=== PATIENT | female | born 1965 | race Caucasian/White ===

== ENCOUNTER 2017-07-07 01:04 | Emergency (ER) | payer MEDICARE, MEDICAID ==
[2017-07-07] MEDS: NITROGLYCERIN 0.4 MG/TAB BTL SL PRN ×2 (01:24→01:30)
[2017-07-07] MEDS ORDERED: ASPIRIN 81 MG TAB.CHEW PO ONE (01:31)
--- NOTE | 2017-07-07 01:32 | ERNOTE ---
Chest Pain/Cardiac HPI Time Seen by Provider: 07/07/17 01:20 Source: patient Exam Limitations: no limitations Allergies/Adverse Reactions: Allergies Penicillins Allergy (Mild, Verified 07/07/17 01:19) Hives Home Medications: HOME MEDICATIONS hydrOXYzine PAMOATE [Hydroxyzine Pamoate] 25 mg PO TID PRN #10 capsule 07/07/17 [Last Taken Unknown] Narrative: pt was at rest this morning and had sudden onset of chest pain that radiated to her left arm. Timing: getting worse Severity/Quality: mild Location: substernal Chest Pain Radiation: jaw Activities at Onset: rest Review of Systems - Review of Systems Constitutional: Absent: recent illness, fever, chills EYE: Present: no symptoms reported ENT: Present: no symptoms reported Respiratory: Absent: shortness of breath, cough Cardiology: Present: See HPI Gastrointestinal/Abdominal: Absent: nausea, vomiting Genitourinary: Absent: pain, dysuria Musculoskeletal: Absent: back pain, muscle pain Skin: Absent: rash Neurological: Present: anxiety, emotional problems Endocrine: Present: excessive sweating, flushing Hematologic/Lymphatic: Present: no symptoms reported Psych: Present: no symptoms reported - Patient's Past Medical History Patient History - Medical: No pertinent hx Patient History - Cardiac/Respiratory: No pertinent hx - Family History Mother Family History - Medical: No pertinent hx Family History - Cardiac/Respiratory: COPD Family History - Cancer: No pertinent family hx Father Family History - Medical: Family History - Cardiac/Respiratory: Hypertension Family History - Cancer: Bone, Prostate Physical Exam - Physical Exam General Appearance: Present: wd/wn, alert, mild distress, anxious Head Exam: Present: normal inspection, no evidence of injury Ears, Nose, Throat: Present: normal ENT inspection Respiratory: Present: no accessory muscle use, lungs clear, decreased breath sounds Cardiovascular/Chest: Present: regular rate, rhythm, no murmur Gastrointestinal/Abdominal: Present: normal bowel sounds, nontender, nondistended Back Exam: Present: normal inspection, normal range of motion, no vertebral tenderness Extremity Exam: Present: normal inspection, normal range of motion, no edema Neurological Exam: Present: alert, oriented, no motor/sensory deficits Skin Exam: Present: normal color, warm/dry Lymphatic Exam: Present: no adenopathy ED Progress - Results and Orders Patient's Lab Results:: I have reviewed the patient's lab results. Results and Orders: Laboratory Tests 07/07/17 07/07/17 01:41 01:41 WBC 8.4 Hgb 14.8 Hct 44.2 Plt Count 337 Sodium 139 Potassium 3.4 Chloride 99 Carbon Dioxide 31.9 Anion Gap 11.5 BUN 13 Creatinine 0.90 Random Glucose 125 H Calcium 9.7 Total Bilirubin 0.4 AST 35 ALT 68 H Alkaline Phosphatase 130 Troponin I Less than 0.017 Total Protein 8.6 H Albumin 4.5 - Vital Signs Patient's Vital Signs:: I have reviewed the patient's vital signs. - EKG EKG: NSR, nonspecific ST T wave changes EKG read: Interp. by me - X-Ray X-Ray #1 X-Ray: chest Interpretation: Interp. by me X-ray Comments: no infiltrate or effusion, heart appears normal - Progress/Reassessment Progress:: Improved Departure Clinical Impression: Anxiety - Departure Disposition: Home Follow Up Needed Condition: Good Instructions: Panic Attacks, [id number] Additional Instructions: take hydroxyzine as needed for anxiety. See your regular doctor to discuss any further evaluation and medications Prescriptions: hydrOXYzine PAMOATE [Hydroxyzine Pamoate] 25 mg PO TID PRN #10 capsule PRN Reason: Anxiety
[2017-07-07 01:41] LABS: Hematocrit 44.2 % (37.0-47.0); Hemoglobin 14.8 gm/dL (12.5-16.0); Mean Cell Volume 90.9 fl (78-100); Mean Corpuscular Hemoglobin 30.5 pg (27-31); Mean Corpuscular Hgb Conc 33.5 g/dl (32-36); Mean Platelet Volume 9.3 fl (6.0-9.5); Neutrophil # 5.3 K/mm3 (1.3-6.0); Neutrophil % 63.5 % (42-75.0); Platelet Count 337 K/mm3 (150-450); Red Blood Count 4.86 M/mm3 (4.2-5.4); Red Cell Distribution Width 12.7 % (11.5-14.0); White Blood Count 8.4 K/mm3 (4.0-10.5)
[2017-07-07] MEDS ORDERED: ASPIRIN 81 MG TAB.CHEW ONE (01:43)
[2017-07-07 02:04] LABS: ALT 68 U/L (19-67); AST 35 U/L (0-48); Albumin * 4.5 gm/dl (3.4-5.0); Alkaline Phosphatase * 130 U/L (50-170); Anion Gap 11.5 mmol/L (6.8-13.8); BUN/Creatinine Ratio 14.4 (9.0-21.6); Bilirubin, Total 0.4 mg/dL (0.0-1.1); Blood Urea Nitrogen 13 mg/dL (3-23); Calcium * 9.7 mg/dL (7.9-10.9); Carbon Dioxide 31.9 mmol/L (24-32.6); Chloride 99 mmol/L (97-106); Glucose * 125 mg/dL (70-110); Potassium 3.4 mmol/L (3.4-4.6); Sodium 139 mmol/L (132-142); Total Protein 8.6 gm/dL (6.2-8.2); Troponin I Less than 0.017 ng/ml (0.00-0.10)
[2017-07-07] MEDS ORDERED: hydrOXYzine PAMOATE 25 MG CAPSULE PO ONE (03:25)
[2017-07-07] MEDS ORDERED: hydrOXYzine PAMOATE 25 MG CAPSULE ONE (03:28)
[2017-07-07 04:11] VITALS: BP 128/71
== END 2017-07-07 03:25 | disposition home or self-care (01) ==
LOC: ER 01:04
DX: F41.9 Anxiety disorder, unspecified (principal)